=== PATIENT | male | born 1990 | race African-American/Black ===

== ENCOUNTER 2017-04-25 11:00 | Inpatient (IN) | payer OTHER ==
[~2017-04-25] VITALS: Ht 172.7 cm; Wt 74.8 kg
--- NOTE | ~2017-04-25 | DS ---
Unit #: [id number] #: [id number] Patient: ELDER GAMBINO [id number] [facility] [address] [place] [address] [id number] MR#: [id number] NAME: ELDER GAMBINO ROOM: [facility] Age: 27 Sex: M Admission Date: 04/25/2017 : 1990 Discharge Date: 04/28/2017 Attending Physician: Heriberto Hansen M.D. Primary Care Physician: Primary Care Physician No DISCHARGE SUMMARY HOSPITAL COURSE The patient was admitted to the [address] [place] [address] and placed on routine detoxification protocol for opioids. He did not participate to any significant degree within the therapeutic milieu during his recent stay in the hospital and exhibited little, if any, investment in maintenance and sobriety or treatment whatsoever. On 04/28, he requested discharge and it was so ordered. DISCHARGE DIAGNOSES Columbia I Opioid use disorder. Columbia II Columbia III Columbia IV Columbia V DISPOSITION ON DISCHARGE The patient is discharged on no psychotropic medications, given his lack of investment in treatment. PROGNOSIS His prognosis is considered guarded. Dictated by... Heriberto Hansen M.D. CB/jackie TD: 04/29/2017 08:51 JOB #: [id number] Unit #: [id number] #: [id number] Patient: ELDER GAMBINO DISCHARGE SUMMARY Page 1 of 1 X Heriberto Hansen MD X DISCHARGE SUMMARY
--- NOTE | ~2017-04-25 | HP ---
Unit #: [id number] #: [id number] Patient: CHARLIE GAMBINO [id number] [place] [address] [id number] MR#: [id number] NAME: CHARLIE GAMBINO ROOM: P203 Age: 27 Sex: M Admission Date: 04/25/2017 : 1990 Attending Physician: Heriberto Hansen M.D. Admitting Physician: Heriberto Hansen M.D. Primary Care Physician: Primary Care Physician No HISTORY AND PHYSICAL HISTORY OF PRESENT ILLNESS Charlie is a 27 year old admitted to [address] [place] [address] because of his drug use. He shoots heroin. PAST MEDICAL HISTORY Long history of opioid abuse to include IV heroin. PAST SURGICAL HISTORY Nothing reported. ALLERGIES No known drug allergies. SOCIAL HISTORY Smokes less than 1/2 pack per day. Denies alcohol. Admits to a long history of opioid abuse to include IV heroin. FAMILY HISTORY Medically noncontributory. REVIEW OF SYSTEMS CONSTITUTIONAL: No fever or chills. HEENT: Denies any sore throat, ear pain or runny nose. CARDIOVASCULAR: Denies chest pain, irregular heart rhythm or palpitations. CHEST: Denies shortness of breath or cough. No hemoptysis. GASTROINTESTINAL: Denies nausea, vomiting, diarrhea or chronic constipation. ENDOCRINE: Denies history of increased thirst or urination. No recent significant weight loss or gain. GENITOURINARY: Denies dysuria, frequency, or hematuria. SKIN: Denies any rashes. HEMATOLOGIC: Denies history of increased bleeding or bruising. MUSCULOSKELETAL: Denies any hot, swollen joints. No generalized muscle pain. NEUROLOGIC: Denies problems with vision or speech. No frequent, severe headaches. No numbness, tingling or weakness in any extremities. Denies loss of bladder or bowel control. CURRENT MEDICATIONS Detox protocol. PHYSICAL EXAMINATION GENERAL: Alert, well-nourished, in no apparent distress. Unit #: [id number] #: [id number] Patient: CHARLIE GAMBINO VITAL SIGNS: Blood pressure 110/76, heart rate 80, respirations 16, temperature 98.6. WEIGHT: 165. HEIGHT: 5 feet 8 inches. SKIN: Warm and dry without rash or lesion. HEENT: Normocephalic. TMs not viewed. Oral and nasal passages clear. Conjunctivae clear. PERRLA. EOMs intact. NECK: Supple without lymphadenopathy or thyromegaly. HEART: Regular rate and rhythm without murmur. LUNGS: Clear. ABDOMEN: Soft, nontender. : Not done. EXTREMITIES: No evidence of cyanosis, clubbing or edema. Moves all without focal deficit. NEUROLOGICAL: Grossly within normal limits. Cranial Nerves: II: Visual zaragoza are intact. III, IV AND : Extraocular movements are intact. Pupils are equal, round and reactive to light. V: Facial sensation is grossly normal. VII: Facial movements and expression are normal. VIII: Auditory acuity grossly intact. IX, X: Uvula is midline. Phonation is normal. XI: Patient shrugs shoulders and turns head normally. XII: Tongue protrudes in the midline. Sensory and Motor Function: Sensory and motor sensation is grossly normal. Motor: moves all extremities well. Coordination: Gait is normal. Deep Tendon Reflexes: Intact. IMPRESSION Psychiatric admission. RECOMMENDATIONS PSYCHIATRIC: Per psychiatrist. MEDICAL: See no contraindication to participate in facility's activities. MEDICAL PROGNOSIS Good. MEDICAL CONDITION Stable. Dictated by... Ml BrownAJuvenal. for Raciel Hendrix/jewell TD: 04/25/2017 17:37 JOB #: [id number] Unit #: [id number] #: [id number] Patient: CHARLIE GAMBINO HISTORY AND PHYSICAL Page 1 of 1 X Brenda Stafford HISTORY AND PHYSICAL
--- NOTE | ~2017-04-25 | PN ---
Unit #: [id number] #: [id number] Patient: ELDER GAMBINO [id number] [facility] [address] [place] [address] [id number] I MR#: [id number] NAME: ELDER GAMBINO ROOM: [facility] Age: 27 Sex: M Admission Date: 04/25/2017 : 1990 Attending Physician: Heriberto Hansen M.D. Admitting Physician: Heriberto Hansen M.D. Primary Care Physician: Primary Care Physician Fallon PEREZ PROGRESS NOTES DATE 04/27/2017 DISCUSSION The patient awakens today and does report a history of longstanding heroin addiction. He is expressing interest in residential chemical dependence treatment on discharge. I will ask his social welfare clerk to see him regarding this. I the meantime, he continues to exhibit significant physical symptoms of opioid withdrawal. Dictated by... Heriberto Hansen M.D. CB/ubaldo TD: 04/27/2017 12:02 JOB #: [id number] ANA PAIGE NOTES Page 1 of 1 X Heriberto Hansen MD PROGRESS NOTE
--- NOTE | ~2017-04-25 | PA ---
Unit #: [id number] #: [id number] Patient: ELDER GAMBINO [id number] [place] [address] [id number] MR#: [id number] NAME: ELDER GAMBINO ROOM: [facility] Age: 27 Sex: M Admission Date: 04/25/2017 : 1990 Date of Assessment: 04/26/2017 Attending Physician: Heriberto Hansen M.D. Admitting Physician: Heriberto Hansen M.D. Primary Care Physician: Primary Care Physician No PSYCHIATRIC ASSESSMENT IDENTIFYING INFORMATION The patient is a 27-year-old male admitted to the [address] [place] [address] for opioid detox. CHIEF COMPLAINT None given. INFORMANT Chart. Patient cannot be aroused for interview. HISTORY OF PRESENT ILLNESS The patient is a 27-year-old male to the [address] [place] [address] for opioid detox. The patient reports no previous chemical dependence treatment. He had last used on the day prior to admission. The patient denies use of other psychoactive substances at this time but reports a history of methamphetamine use a couple of years ago. There is no prior history of chemical dependence treatment reported though the patient was treated as a child at [facility] for depressive symptoms. PAST PSYCHIATRIC HISTORY As above. PAST MEDICAL HISTORY Noncontributory. MEDICATIONS None. ALLERGIES None. FAMILY HISTORY Noncontributory. SOCIAL HISTORY The patient reports substance use as noted previously. MENTAL STATUS EXAMINATION Examination at this time reveals the patient to be a soundly sleeping male. Multiple attempts to arouse the patient are unsuccessful. ASSETS AND LIABILITIES Unit #: [id number] #: [id number] Patient: ELDER GAMBINO The patient's assets are to be assessed. Liabilities: Lack of resources. DIAGNOSTIC IMPRESSION Opioid use disorder. TREATMENT PLAN The patient remains hospitalized for safety and stabilization. Routine detoxification protocol for opioids has been initiated. The patient will participate in appropriate order of milieu activities. ESTIMATED LENGTH OF STAY 3 days. Followup will take place through the auspices of community mental health resources. Dictated by... Raciel Canseco TD: 04/26/2017 14:13 JOB #: [id number] PSYCHIATRIC ASSESSMENT Page 1 of 1 X Heriberto Hansen MD PSYCHIATRIC ASSESSMENT
[2017-04-26 10:25] LABS: BASOPHIL% 0.8 % (0-2.5); EOSINOPHIL# 0.3 X10e3 (0-0.7); EOSINOPHIL% 4.7 % (0.0-7.0); HEMATOCRIT 38.5 % (38.0-50.0); HEMOGLOBIN 13.2 gm/dL (13.0-16.0); LYMPHOCYTE# 1.9 X10e3 (1.0-3.5); LYMPHOCYTE% 34.9 % (17.0-45.0); MEAN CELL VOLUME 82.9 FL (83-96); MEAN CORPUSCULAR HEMOGLOBIN 28.4 PG (28-34); MEAN CORPUSCULAR HGB CONC 34.2 g/dL (30-36); MEAN PLATELET VOLUME 7.4 FL (6.5-11.5); MONOCYTE# 0.5 X10e3 (0-1.0); MONOCYTE% 8.6 % (3.0-12.0); NEUTROPHIL# 2.7 X10e3 (1.5-7.1); PLATELET COUNT 216 X10e3 (140-420); RED BLOOD COUNT 4.64 X10e (3.90-5.60); RED CELL DISTRIBUTION WIDTH 13.8 % (11.0-15.5); WHITE BLOOD COUNT 5.4 X10e3 (4.0-10.5)
[2017-04-26 10:26] LABS: ALBUMIN SERUM 3.9 g/dL (3.5-5.0); BILIRUBIN,TOTAL 0.9 mg/dL (0.2-2.0); BUN/CREATININE RATIO 21.25; CALCIUM SERUM 9.3 mg/dL (8.4-10.2); CREATININE SERUM 0.8 mg/dL (0.6-1.4); POTASSIUM 4.7 mmol/L (3.5-5.1); PROTEIN TOTAL SERUM 7.4 g/dL (6.0-8.3)
[2017-04-26 11:02] LABS: DIFF IND NO
[2017-04-30 16:19] LABS: HA AB IGM (HEPPAN) Nonreactive (()); HB CORE AB IGM (HEPPAN) Nonreactive (Nonreactive); HB S AG (HEPPAN) Nonreactive (Nonreactive); HEP C AB (HEPPAN) Reactive (Nonreactive)
== END 2017-04-28 14:10 | disposition home or self-care (01) | DRG 897 ==
LOC: P2S 13:34
PROVIDERS: Specialist
PROC: HZ2ZZZZ Detoxification Services for Substance Abuse Treatment (ICD-10-PCS; principal; 2017-04-25)
DX: F11.23 Opioid dependence with withdrawal (principal); F17.210 Nicotine dependence, cigarettes, uncomplicated
CPT/HCPCS: 80053; 80074; 85025; 87522; 87806